=== PATIENT | male | born 1965 | race Caucasian/White ===

== ENCOUNTER 2020-04-16 16:39 | Emergency (ER) | payer SELFPAY ==
--- NOTE | 2020-04-16 17:37 | EDM.PDOC ---
<Delfina Burr - Last Filed: 04/16/20 18:11> ED HPI GENERAL MEDICAL PROBLEM - General Chief Complaint: General Stated Complaint: DEHYDRATED Time Seen by Provider: 04/16/20 17:40 Source of Information: Reports: Patient History Limitations: Reports: No Limitations - History of Present Illness INITIAL COMMENTS - FREE TEXT/NARRATIVE: pt got up today and he felt weak and felt like he was not able to eat. He has not been vomiting. He has had normal bms. He has been eating well in the days preceding today. He feels like is weight is not down. ! month ago he moved from [place] to live with his mother. He was living in [place] and was in a apartment complex. He felt like some of the residents didn,t want him there. At one point he wAS HEARING VOICES. hE WAS RECENTLY WAS IN THE HOSPITAL IN [place] . hE WAS HYDRATED THERE. Onset: Gradual Duration: Hour(s): Location: Reports: Generalized Associated Symptoms: Reports: Weakness, Other (PT IS JUST NOT FEELING RIGHT. ) - Related Data Allergies Allergy/AdvReac Type Severity Reaction Status Date / Time No Known Allergies Allergy Verified 04/16/20 17:39 Home Meds: Home Meds Losartan Potassium 50 mg PO DAILY 04/16/20 [History] hydroCHLOROthiazide [Hydrochlorothiazide] 12.5 mg PO DAILY 04/16/20 [History] ED ROS GENERAL - Review of Systems Review Of Systems: See Below Constitutional: Reports: Weakness, Fatigue, Decreased Appetite HEENT: Reports: No Symptoms Respiratory: Reports: No Symptoms Cardiovascular: Reports: No Symptoms Endocrine: Reports: No Symptoms GI/Abdominal: Reports: Decreased Appetite : Reports: No Symptoms Musculoskeletal: Reports: No Symptoms Skin: Reports: No Symptoms ED EXAM, GENERAL - Physical Exam Exam: See Below Free Text/Narrative:: PT ARRIVED WITH A VAGUE COMPLAINT OF FEELING DEHYDRATED. hE HAS NOT FELT LIKE EATING TODAY hE HAS NOT VOMITED. hE HAS HAD TO BE HYDRATED IN THE PAST. hE HAS BEEN EATING WELL IN THE PAST SINCE HE CAME FROM [place] AND MOVED IN WITH HIS MOTHER IN [place]. Exam Limited By: No Limitations General Appearance: Alert, Anxious, Mild Distress Ears: Normal TMs Nose: Normal Inspection Throat/Mouth: Normal Inspection Head: Atraumatic Neck: Normal Inspection Respiratory/Chest: No Respiratory Distress Cardiovascular: Regular Rate, Rhythm GI/Abdominal: Soft, Non-Tender (Male) Exam: Deferred Rectal (Males) Exam: Deferred Back Exam: Normal Inspection Extremities: Normal Inspection Neurological: Alert, Oriented, Normal Cognition Psychiatric: Normal Affect Departure - Departure Disposition: Home, Self-Care 01 Clinical Impression: Situational stress, Intellectual disability, Disability, developmental, Mental health problem - Discharge Information Instructions: Intellectual Disability, Adjustment Disorder, Adult Referrals: PCP,None [Primary Care Provider] - Forms: ED Department Discharge Additional Instructions: 1. You have been placed on the follow-up list with [facility] to establish a local primary care provider. 2. You have been placed on the ER social human services assistants follow-up list for health insurance concerns while kacie barretofrank [facility] with disabilities. 3. Please obtain all of your old medical records to take with you to your new clinic to assist provider in continuing your care. 4. Please return to ER if concerns regarding risk of hurting self or others. <Mariely Andersen - Last Filed: 04/16/20 20:02> Course - Vital Signs Last Recorded V/S: Last Vital Signs Temp 36.6 C 04/16/20 17:37 Pulse 54 L 04/16/20 17:37 Resp 16 04/16/20 17:37 BP 128/71 04/16/20 17:37 Pulse Ox 97 04/16/20 17:37 - Orders/Labs/Meds Orders: Active Orders 24 hr Category Date Time Status Cardiac Monitoring [RC] .As Directed Care 04/16/20 17:40 Active Sodium Chloride 0.9% [Normal Saline] 1,000 ml Med 04/16/20 18:15 Active IV ASDIRECTED Medication Orders Sodium Chloride (Normal Saline) 1,000 mls @ 999 mls/hr IV ASDIRECTED ADARSH Last Admin: 04/16/20 18:53 Dose: 999 mls/hr Documented by: CONNIE Labs: Laboratory Tests 04/16/20 04/16/20 04/16/20 Range/Units 17:47 17:47 17:55 WBC 9.9 (4.5-11.0) K/uL RBC 4.51 (4.30-5.90) M/uL Hgb 14.0 (12.0-15.0) g/dL Hct 42.0 (40.0-54.0) % MCV 93 (80-98) fL MCH 31 (27-31) pg MCHC 33 (32-36) % Plt Count 221 (150-400) K/uL Neut % (Auto) 83 H (36-66) % Lymph % (Auto) 8 L (24-44) % Arroyo % (Auto) 7 H (2-6) % Eos % (Auto) 1 L (2-4) % Baso % (Auto) 0 (0-1) % Sodium 142 (140-148) mmol/L Potassium 3.8 (3.6-5.2) mmol/L Chloride 104 (100-108) mmol/L Carbon Dioxide 29 (21-32) mmol/L Anion Gap 9.4 (5.0-14.0) mmol/L BUN 16 (7-18) mg/dL Creatinine 1.0 (0.8-1.3) mg/dL Est Cr Clr Drug Dosing 66.47 mL/min Estimated GFR (MDRD) > 60 (>60) Glucose 96 (74-106) mg/dL Calcium 9.4 (8.5-10.1) mg/dL Total Bilirubin 1.4 H (0.2-1.0) mg/dL AST 28 (15-37) U/L ALT 60 (12-78) U/L Alkaline Phosphatase 72 (46-116) U/L C-Reactive Protein < 0.05 (0.0-0.3) mg/dL Total Protein 7.3 (6.4-8.2) g/dL Albumin 4.0 (3.4-5.0) g/dL Globulin 3.3 (2.3-3.5) g/dL Albumin/Globulin Ratio 1.2 (1.2-2.2) Urine Color Yellow (YELLOW) Urine Appearance Clear (CLEAR) Urine pH 7.0 (5.0-8.0) Ur Specific Cable 1.015 (1.008-1.030) Urine Protein Negative (NEGATIVE) mg/dL Urine Glucose (UA) Negative (NEGATIVE) mg/dL Urine Ketones Negative (NEGATIVE) mg/dL Urine Occult Blood Negative (NEGATIVE) Urine Nitrite Negative (NEGATIVE) Urine Bilirubin Negative (NEGATIVE) Urine Urobilinogen 0.2 (0.2-1.0) EU/dL Ur Leukocyte Esterase Negative (NEGATIVE) Urine RBC 0-5 (0-5) Urine WBC 0-5 (0-5) Ur Epithelial Cells Not seen Amorphous Sediment Not seen Urine Bacteria Not seen Urine Mucus Not seen Urine Opiates Screen (NEGATIVE) Ur Oxycodone Screen (NEGATIVE) Urine Methadone Screen (NEGATIVE) Ur Propoxyphene Screen (NEGATIVE) Ur Barbiturates Screen (NEGATIVE) Ur Tricyclics Screen (NEGATIVE) Ur Phencyclidine Scrn (NEGATIVE) Ur Amphetamine Screen (NEGATIVE) U Methamphetamines Scrn (NEGATIVE) Urine MDMA Screen (NEGATIVE) U Benzodiazepines Scrn (NEGATIVE) U Cocaine Metab Screen (NEGATIVE) U Marijuana (THC) Screen (NEGATIVE) 04/16/20 Range/Units 18:10 WBC (4.5-11.0) K/uL RBC (4.30-5.90) M/uL Hgb (12.0-15.0) g/dL Hct (40.0-54.0) % MCV (80-98) fL MCH (27-31) pg MCHC (32-36) % Plt Count (150-400) K/uL Neut % (Auto) (36-66) % Lymph % (Auto) (24-44) % Arroyo % (Auto) (2-6) % Eos % (Auto) (2-4) % Baso % (Auto) (0-1) % Sodium (140-148) mmol/L Potassium (3.6-5.2) mmol/L Chloride (100-108) mmol/L Carbon Dioxide (21-32) mmol/L Anion Gap (5.0-14.0) mmol/L BUN (7-18) mg/dL Creatinine (0.8-1.3) mg/dL Est Cr Clr Drug Dosing mL/min Estimated GFR (MDRD) (>60) Glucose (74-106) mg/dL Calcium (8.5-10.1) mg/dL Total Bilirubin (0.2-1.0) mg/dL AST (15-37) U/L ALT (12-78) U/L Alkaline Phosphatase (46-116) U/L C-Reactive Protein (0.0-0.3) mg/dL Total Protein (6.4-8.2) g/dL Albumin (3.4-5.0) g/dL Globulin (2.3-3.5) g/dL Albumin/Globulin Ratio (1.2-2.2) Urine Color (YELLOW) Urine Appearance (CLEAR) Urine pH (5.0-8.0) Ur Specific Cable (1.008-1.030) Urine Protein (NEGATIVE) mg/dL Urine Glucose (UA) (NEGATIVE) mg/dL Urine Ketones (NEGATIVE) mg/dL Urine Occult Blood (NEGATIVE) Urine Nitrite (NEGATIVE) Urine Bilirubin (NEGATIVE) Urine Urobilinogen (0.2-1.0) EU/dL Ur Leukocyte Esterase (NEGATIVE) Urine RBC (0-5) Urine WBC (0-5) Ur Epithelial Cells Amorphous Sediment Urine Bacteria Urine Mucus Urine Opiates Screen Negative (NEGATIVE) Ur Oxycodone Screen Negative (NEGATIVE) Urine Methadone Screen Negative (NEGATIVE) Ur Propoxyphene Screen Negative (NEGATIVE) Ur Barbiturates Screen Negative (NEGATIVE) Ur Tricyclics Screen Negative (NEGATIVE) Ur Phencyclidine Scrn Negative (NEGATIVE) Ur Amphetamine Screen Negative (NEGATIVE) U Methamphetamines Scrn Negative (NEGATIVE) Urine MDMA Screen Negative (NEGATIVE) U Benzodiazepines Scrn Negative (NEGATIVE) U Cocaine Metab Screen Negative (NEGATIVE) U Marijuana (THC) Screen Negative (NEGATIVE) Meds: Medications Generic Name Dose Route Start Last Admin Trade Name Freq PRN Reason Stop Dose Admin Sodium Chloride 1,000 mls @ 999 mls/hr 04/16/20 18:15 04/16/20 18:53 Normal Saline IV 999 mls/hr ASDIRECTED ADARSH Administration Discontinued Medications Generic Name Dose Route Start Last Admin Trade Name Freq PRN Reason Stop Dose Admin Ondansetron HCl 4 mg 04/16/20 18:16 04/16/20 18:53 Zofran IVPUSH 04/16/20 18:17 4 mg ONETIME ONE Administration - Re-Assessments/Exams Free Text/Narrative Re-Assessment/Exam: Patient is feeling much improved. Need to get signed up for [place] care, new primary care provider mother prefers [facility] in additional to medical management and mental health management. Patient is feeling much improved after IVF completed. 04/16/20 20:00 Departure - Departure Time of Disposition: 20:00 Sepsis Event Note (ED) - Focused Exam Vital Signs: Vital Signs Temp Pulse Resp BP Pulse Ox 04/16/20 17:37 36.6 C 54 L 16 128/71 97 04/16/20 17:09 36.6 C 54 L 16 128/71 97
[2020-04-16] MEDS ORDERED: Sodium Chloride 0.9% 1,000 ML IV SCH (18:15)
[2020-04-16] MEDS ORDERED: Ondansetron 4 MG/2 ML SDV IVPUSH ONE (18:16)
== END 2020-04-16 20:12 | disposition home or self-care (01) ==
LOC: JP.ED 16:39
DX: F43.9 Reaction to severe stress, unspecified (principal); F79 Unspecified intellectual disabilities; F48.9 Nonpsychotic mental disorder, unspecified; Z79.899 Other long term (current) drug therapy
CPT/HCPCS: 36415; 80053; 80305; 81001; 85025; 86140; 96361; 96374; 99284; J2405; J7030; 99283

== ENCOUNTER 2020-11-01 19:36 | Emergency (ER) | payer SELFPAY ==
--- NOTE | 2020-11-01 20:11 | EDM.PDOCBH ---
ED HPI GENERAL MEDICAL PROBLEM - General Chief Complaint: Behavioral/Psych Stated Complaint: MENTAL HEALTH EVAL [facility]IA [facility] Time Seen by Provider: 11/01/20 19:42 Source of Information: Reports: Patient, EMS, Old Records History Limitations: Reports: No Limitations - History of Present Illness INITIAL COMMENTS - FREE TEXT/NARRATIVE: Narayan is a 54-year-old male presenting to the ED via [facility] for evaluation of visual and auditory hallucinations. The patient resides with his mother in [place], [place] and reportedly for started hearing voices when he moved up from [facility] in March 2020 to take care of his mother who has had frequent falling. The patient is seen and managed in the [facility] by Dr. Cali. She last saw him on 08/09/2020. The patient has a history for essential hypertension, intellectual disability, psychosis, and auditory hallucinations. He has a previous history of meningitis. He had previously been on losartan 50 mg daily, Seroquel 50 mg 2 times a day, and hydrochlorothiazide 12.5 mg daily. It appears that he discontinued taking any of his medications in August as he has not had any of his prescriptions refilled since seeing his provider on 08/09/2020 when he apparently ran out of his medications. The patient endorses that the medications were not do anything for him. He likely carries a diagnosis of schizophrenia, however, there is no documentation of that here and he previously was managed in [facility] which is where he obtained his SSI disability. The patient reports over the last 5 months he has felt like nicholas jennings is watching a television that is viewing everything that his ICD and then he hears multiple voices commanding him what to do and feel, and this enrages him. The voices are usually telling him to self-harm. At one point he mentioned that they told him to cut his penis off. He does report that he has been trying to manage his anger with going outside and smoking. He also discusses that the voices are preventing him from sleeping. He reports that he only gets about 1 to 2 hours of sleep at a time. He also believes that the voices are affecting his brother who also lives with him. Denies Pain Score (Numeric/FACES): 0 - Related Data Allergies Allergy/AdvReac Type Severity Reaction Status Date / Time No Known Allergies Allergy Verified 05/07/20 13:09 Home Meds: Home Meds Losartan Potassium 50 mg PO DAILY 04/16/20 [History] hydroCHLOROthiazide [Hydrochlorothiazide] 12.5 mg PO DAILY 04/16/20 [History] QUEtiapine [SEROquel] 50 mg PO BID 11/01/20 [History] cephALEXin [Cephalexin] 500 mg PO BID 5 Days #9 capsule 11/02/20 [Rx] Past Medical History Cardiovascular History: Reports: Hypertension - Past Surgical History HEENT Surgical History: Reports: Tonsillectomy Social & Family History - Caffeine Use Caffeine Use: Reports: Energy Drinks Other Caffeine Use: 1 per day ED ROS GENERAL - Review of Systems Review Of Systems: See Below Constitutional: Reports: No Symptoms HEENT: Reports: No Symptoms Respiratory: Reports: No Symptoms Cardiovascular: Reports: No Symptoms Endocrine: Reports: No Symptoms GI/Abdominal: Reports: No Symptoms : Reports: No Symptoms Musculoskeletal: Reports: No Symptoms Skin: Reports: No Symptoms Neurological: Reports: No Symptoms Psychiatric: Reports: Agitation, Hallucinations (Auditory hallucinations with multiple voices, visual hallucinations with seeing shadows especially with his eyes closed.), Mood Lability. Denies: Homicidal Ideation, Suicidal Ideation Hematologic/Lymphatic: Reports: No Symptoms Immunologic: Reports: No Symptoms ED EXAM, BEHAVIORAL HEALTH - Physical Exam Exam: See Below Exam Limited By: No Limitations General Appearance: Alert, WD/WN, No Apparent Distress, Anxious Eye Exam: Bilateral Eye: EOMI, PERRL Head: Atraumatic, Normocephalic Neck: Normal Inspection, Supple Respiratory/Chest: No Respiratory Distress, Lungs Clear, Normal Breath Sounds, No Accessory Muscle Use Cardiovascular: Normal Peripheral Pulses, Regular Rate, Rhythm, No Edema, No JVD, No Murmur GI/Abdominal: Normal Bowel Sounds, Soft, Non-Tender Back Exam: Normal Inspection Extremities: Normal Inspection, Normal Range of Motion, No Pedal Edema Neurological: Alert, CN II-XII Intact, Normal Cognition, No Motor/Sensory Deficits, Oriented x 3 Psychiatric: Alert, Restless, Agitated, Flight of Ideas, Tangential Thoughts, Auditory Hallucinations, Visual Hallucinations, Pressured Speech. No: Homicidal Thoughts, Suicidal Plan, Suicidal Thoughts, Threatening Behavior Skin Exam: Warm, Dry, Intact, Normal color COURSE, BEHAVIORAL HEALTH COMP - Course Vital Signs: Last Vital Signs Temp 36.5 C 11/02/20 10:16 Pulse 51 L 11/02/20 10:16 Resp 16 11/02/20 10:16 BP 98/61 11/02/20 10:16 Pulse Ox 96 11/02/20 10:16 Orders, Labs, Meds: Laboratory Tests 11/01/20 11/01/20 11/01/20 Range/Units 20:10 20:10 20:10 WBC 12.0 H (4.5-11.0) K/uL RBC 5.06 (4.30-5.90) M/uL Hgb 15.7 H (12.0-15.0) g/dL Hct 45.8 (40.0-54.0) % MCV 91 (80-98) fL MCH 31 (27-31) pg MCHC 34 (32-36) % Plt Count 203 (150-400) K/uL Neut % (Auto) 85 H (36-66) % Lymph % (Auto) 8 L (24-44) % Lares % (Auto) 6 (2-6) % Eos % (Auto) 1 L (2-4) % Baso % (Auto) 0 (0-1) % Sodium 143 (140-148) mmol/L Potassium 4.4 (3.6-5.2) mmol/L Chloride 105 (100-108) mmol/L Carbon Dioxide 30 (21-32) mmol/L Anion Gap 7.8 (5.0-14.0) mmol/L BUN 18 (7-18) mg/dL Creatinine 1.1 (0.8-1.3) mg/dL Est Cr Clr Drug Dosing 68.47 mL/min Estimated GFR (MDRD) > 60 (>60) Glucose 95 (74-106) mg/dL Calcium 9.4 (8.5-10.1) mg/dL Total Bilirubin 0.8 (0.2-1.0) mg/dL AST 15 (15-37) U/L ALT 19 (12-78) U/L Alkaline Phosphatase 73 (46-116) U/L Total Protein 7.7 (6.4-8.2) g/dL Albumin 3.8 (3.4-5.0) g/dL Globulin 3.9 H (2.3-3.5) g/dL Albumin/Globulin Ratio 1.0 L (1.2-2.2) Urine Color (YELLOW) Urine Appearance (CLEAR) Urine pH (5.0-8.0) Ur Specific [place] (1.008-1.030) Urine Protein (NEGATIVE) mg/dL Urine Glucose (UA) (NEGATIVE) mg/dL Urine Ketones (NEGATIVE) mg/dL Urine Occult Blood (NEGATIVE) Urine Nitrite (NEGATIVE) Urine Bilirubin (NEGATIVE) Urine Urobilinogen (0.2-1.0) EU/dL Ur Leukocyte Esterase (NEGATIVE) Urine RBC (0-5) Urine WBC (0-5) Ur Epithelial Cells Amorphous Sediment Urine Bacteria Urine Mucus Urine Opiates Screen (NEGATIVE) Ur Oxycodone Screen (NEGATIVE) Urine Methadone Screen (NEGATIVE) Ur Propoxyphene Screen (NEGATIVE) Ur Barbiturates Screen (NEGATIVE) Ur Tricyclics Screen (NEGATIVE) Ur Phencyclidine Scrn (NEGATIVE) Ur Amphetamine Screen (NEGATIVE) U Methamphetamines Scrn (NEGATIVE) Urine MDMA Screen (NEGATIVE) U Benzodiazepines Scrn (NEGATIVE) U Cocaine Metab Screen (NEGATIVE) U Marijuana (THC) Screen (NEGATIVE) Ethyl Alcohol < 3 mg/dL Influenza Type A RNA (NEGATIVE) RSV RNA (INAAT) (NEGATIVE) Influenza Type B RNA (NEGATIVE) SARS-CoV-2 RNA (RAJANI) (NEGATIVE) 11/01/20 11/01/20 11/01/20 Range/Units 20:20 20:24 20:24 WBC (4.5-11.0) K/uL RBC (4.30-5.90) M/uL Hgb (12.0-15.0) g/dL Hct (40.0-54.0) % MCV (80-98) fL MCH (27-31) pg MCHC (32-36) % Plt Count (150-400) K/uL Neut % (Auto) (36-66) % Lymph % (Auto) (24-44) % Lares % (Auto) (2-6) % Eos % (Auto) (2-4) % Baso % (Auto) (0-1) % Sodium (140-148) mmol/L Potassium (3.6-5.2) mmol/L Chloride (100-108) mmol/L Carbon Dioxide (21-32) mmol/L Anion Gap (5.0-14.0) mmol/L BUN (7-18) mg/dL Creatinine (0.8-1.3) mg/dL Est Cr Clr Drug Dosing mL/min Estimated GFR (MDRD) (>60) Glucose (74-106) mg/dL Calcium (8.5-10.1) mg/dL Total Bilirubin (0.2-1.0) mg/dL AST (15-37) U/L ALT (12-78) U/L Alkaline Phosphatase (46-116) U/L Total Protein (6.4-8.2) g/dL Albumin (3.4-5.0) g/dL Globulin (2.3-3.5) g/dL Albumin/Globulin Ratio (1.2-2.2) Urine Color Yellow (YELLOW) Urine Appearance Clear (CLEAR) Urine pH 6.5 (5.0-8.0) Ur Specific [place] 1.020 (1.008-1.030) Urine Protein Negative (NEGATIVE) mg/dL Urine Glucose (UA) Negative (NEGATIVE) mg/dL Urine Ketones Negative (NEGATIVE) mg/dL Urine Occult Blood Trace-intact H (NEGATIVE) Urine Nitrite Negative (NEGATIVE) Urine Bilirubin Negative (NEGATIVE) Urine Urobilinogen 0.2 (0.2-1.0) EU/dL Ur Leukocyte Esterase Trace H (NEGATIVE) Urine RBC 5-10 H (0-5) Urine WBC 5-10 H (0-5) Ur Epithelial Cells Rare Amorphous Sediment Not seen Urine Bacteria Few Urine Mucus Not seen Urine Opiates Screen Negative (NEGATIVE) Ur Oxycodone Screen Negative (NEGATIVE) Urine Methadone Screen Negative (NEGATIVE) Ur Propoxyphene Screen Negative (NEGATIVE) Ur Barbiturates Screen Negative (NEGATIVE) Ur Tricyclics Screen Negative (NEGATIVE) Ur Phencyclidine Scrn Negative (NEGATIVE) Ur Amphetamine Screen Negative (NEGATIVE) U Methamphetamines Scrn Negative (NEGATIVE) Urine MDMA Screen Negative (NEGATIVE) U Benzodiazepines Scrn Negative (NEGATIVE) U Cocaine Metab Screen Negative (NEGATIVE) U Marijuana (THC) Screen Negative (NEGATIVE) Ethyl Alcohol mg/dL Influenza Type A RNA Negative (NEGATIVE) RSV RNA (INAAT) Negative (NEGATIVE) Influenza Type B RNA Negative (NEGATIVE) SARS-CoV-2 RNA (RAJANI) Negative (NEGATIVE) Medications Discontinued Medications Generic Name Dose Route Start Last Admin Trade Name Freq PRN Reason Stop Dose Admin Cephalexin 500 mg 11/01/20 23:01 11/01/20 23:40 Keflex PO 11/01/20 23:02 500 mg ONETIME ONE Administration Cephalexin 500 mg 11/02/20 08:05 11/02/20 08:20 Keflex PO 11/02/20 08:06 500 mg ONETIME ONE Administration Nicotine 21 mg 11/02/20 08:56 11/02/20 09:06 Habitrol TRDERM 11/02/20 08:57 21 mg ONETIME ONE Administration Re-Assessment/Re-Exam: I reviewed Narayan's labs and see that he has 5-10 WBCs and 5-10 RBCs with a positive leukocyte esterase on his urinalysis. He also has a small leukocytosis with a white count of 12.0. It is likely that he has early stages of a urinary tract infection, although, he denies any symptoms. The patient has gone to the washroom frequently while in the ER tonight. We will start him on cephalexin 500 mg twice daily for urinary tract infection. The patient is medically cleared for inpatient psychiatric admission. Medical Clearance: 11/01/20 21:57 Narayan is medically cleared for inpatient psychiatric admission. He will likely need to be admitted for stabilization and to reinitiate his medications. We will await for the assessment by [facility]. Discharge vs Psych Eval/Treatment:: 11/02/20 00:00 the mobile crisis provider agrees and endorses that the patient would benefit from inpatient psychiatric admission for stabilization and reinitiation of medication. The patient is agreeable to inpatient admission. We reached out to both [facility] who did not have any beds available at this time and to [facility]. It appears that [facility] has a bed available so we will arrange for transfer the patient up there. 11/02/20 02:13 [facility] called back and they declined transfer of the patient due to the fact that they have several violent patients right now and do not feel that our patient would be a good fit at this time. We will again reach out to [facility] who will likely be able to take the patient in the morning after they have had discharges. Departure - Departure Time of Disposition: 01:47 Disposition: DC/Tfer to Psych Hosp/Unit 65 Condition: Good Clinical Impression: Intellectual disability, Disability, developmental, Hallucinations Psychosis Qualifiers: Psychosis type: schizophrenia Schizophrenia type: unspecified Qualified Code(s): F20.9 - Schizophrenia, unspecified Urinary tract infection Qualifiers: Urinary tract infection type: acute cystitis Hematuria presence: with hematuria Qualified Code(s): N30.01 - Acute cystitis with hematuria - Discharge Information *PRESCRIPTION DRUG MONITORING PROGRAM REVIEWED*: Not Applicable *COPY OF PRESCRIPTION DRUG MONITORING REPORT IN PATIENT DIANE: Not Applicable Prescriptions: cephALEXin [Cephalexin] 500 mg PO BID 5 Days #9 capsule Referrals: Keiry Cali DO [Primary Care Provider] - Forms: ED Department Discharge - Problem List & Annotations (1) Intellectual disability SNOMED Code(s): 946294059 Code(s): F79 - UNSPECIFIED INTELLECTUAL DISABILITIES Status: Chronic Priority: High (2) Disability, developmental Status: Chronic Priority: High (3) Hallucinations SNOMED Code(s): 3257086 Code(s): R44.3 - HALLUCINATIONS, UNSPECIFIED Status: Acute Priority: High (4) Psychosis SNOMED Code(s): 66850990 Code(s): F29 - UNSP PSYCHOSIS NOT DUE TO A SUBSTANCE OR KNOWN PHYSIOL COND Status: Acute Priority: High Qualifiers: Psychosis type: schizophrenia Schizophrenia type: unspecified Qualified Code(s): F20.9 - Schizophrenia, unspecified (5) Urinary tract infection SNOMED Code(s): 62603499 Code(s): N39.0 - URINARY TRACT INFECTION, SITE NOT SPECIFIED Status: Acute Priority: Medium Qualifiers: Urinary tract infection type: acute cystitis Hematuria presence: with hematuria Qualified Code(s): N30.01 - Acute cystitis with hematuria - Problem List Review Problem List Initiated/Reviewed/Updated: Yes
[2020-11-01 21:02] LABS: CORONAVIRUS COVID-19 NAA NEGATIVE (NEGATIVE)
[2020-11-01] MEDS ORDERED: Cephalexin 250 MG Cap PO ONE (23:01)
[2020-11-02] MEDS ORDERED: Cephalexin 250 MG Cap PO ONE (08:05)
[2020-11-02] MEDS ORDERED: Nicotine 21 MG/24 Hr Patch TRDERM ONE (08:56)
== END 2020-11-02 11:35 ==
LOC: JP.ED 19:36
DX: N30.01 Acute cystitis with hematuria (principal); F20.9 Schizophrenia, unspecified; F89 Unspecified disorder of psychological development; F79 Unspecified intellectual disabilities; I10 Essential (primary) hypertension; Z79.899 Other long term (current) drug therapy; Z20.822 Contact with and (suspected) exposure to COVID-19
CPT/HCPCS: 0241U; 36415; 80053; 80305-QW; 80307; 81001; 85025; 99285; A9270-GY